=== PATIENT | female | born 1990 ===

== ENCOUNTER 2017-03-24 13:51 | Observation (INO) | payer BC ==
--- NOTE | 2017-03-24 14:47 | US ---
EXAMINATION: Biophysical profile HISTORY: Gestational diabetes COMPARISON: 03/17/2017 TECHNIQUE: Grayscale and M-mode imaging obtained. FINDINGS: Single live intrauterine is noted in the cephalic position. Amniotic fluid index is normal at 13.6 cm. Positive breathing, movement, and tone. IMPRESSION: Biophysical profile 09/14.
[2017-03-24 15:38] LABS: CHLORIDE,CL 104 mmol/L (98-110); SODIUM,NA 137 mmol/L (136-146)
== END 2017-03-24 18:00 | disposition home or self-care (01) ==
LOC: MW.OBCHECK 13:51 → MW.US 13:51 → MW.OB 15:46
PROVIDERS: ADMIT Obstetrics & Gynecology; ATTEND Advanced Practice Midwife
DX: O24.410 Gestational diabetes mellitus in pregnancy, diet controlled (principal); O16.3 Unspecified maternal hypertension, third trimester; Z3A.34 34 weeks gestation of pregnancy
CPT/HCPCS: 36415; 59025; 76819; 80053; 82570; 84156; 84550; 85025; G0378

== ENCOUNTER 2017-03-27 00:34 | Inpatient (IN) | payer BC ==
[2017-03-27] MEDS ORDERED: Water For Irrigation,Sterile 1,000 ML Container IRR PRN (00:55)
[2017-03-27] MEDS ORDERED: Methylergonovine 0.2 MG/1 ML Amp IM PRN (00:55)
[2017-03-27] MEDS ORDERED: Carboprost Tromethamine 250 MCG/1 ML Amp IM PRN (00:55)
[2017-03-27] MEDS ORDERED: Tranexamic Acid 1,000 MG in Sodium Chloride 0.9% 100 ML IV PRN (00:55)
[2017-03-27] MEDS ORDERED: Misoprostol 200 MCG Tab PO PRN (00:55)
[2017-03-27] MEDS ORDERED: Terbutaline 1 MG/ML SDV SUBCUT PRN (00:55)
[2017-03-27] MEDS ORDERED: Sodium Chloride 0.9% 10 ML Syringe FLUSH PRN (00:55)
[2017-03-27] MEDS ORDERED: Lidocaine 1% 50 ML MDV INJECT PRN (00:55)
[2017-03-27] MEDS ORDERED: Sodium Chloride 0.9% 2.5 ML Syringe FLUSH PRN (00:55)
[2017-03-27] MEDS ORDERED: Nalbuphine 10 MG/1 ML Vial IVPUSH PRN ×2 (00:55→21:14)
[2017-03-27] MEDS ORDERED: Oxytocin/0.9 % Sodium Chloride 30 UNIT/500 ML BAG IV SCH ×2 (01:00)
[2017-03-27] MEDS ORDERED: Misoprostol 25 MCG (1/4 of 100 MCG) Tab VAG SCH (01:30)
[2017-03-27] MEDS ORDERED: Misoprostol 25 MCG (1/4 of 100 MCG) Tab PO SCH (01:30)
[2017-03-27] MEDS ORDERED: Misoprostol 25 MCG (1/4 of 100 MCG) Tab VAG PRN (05:30)
[2017-03-27] MEDS ORDERED: Misoprostol 25 MCG (1/4 of 100 MCG) Tab PO PRN (05:30)
--- NOTE | 2017-03-27 09:00 | PCM.LDHP ---
L&D History of Present Illness - General Date of Service: 03/27/17 Admit Problem/Dx: Patient Status Order with Admit Dx/Problem 03/27/17 00:55 Patient Status [ADT] Routine Admission Diagnosis/Problem Admission Diagnosis/Problem 03/27/17 08:55 27yo EDC 04/04/2017 38 6/7wks IOL for GDMA1, and elevated BP. B+, RI, GBS neg. 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: Endocrine/Metabolic History: Reports: Diabetes, Gestational - Past Surgical History Cardiovascular Surgical History: Reports: None Endocrine Surgical History: Reports: None Social & Family History - Family History OBGYN: Reports: - Tobacco Use Smoking Status *Q: Never Smoker - Recreational Drug Use Recreational Drug Use: No H&P Review of Systems - Review of Systems: Review Of Systems: See Below General: Reports: No Symptoms HEENT: Reports: No Symptoms Pulmonary: Reports: No Symptoms Cardiovascular: Reports: No Symptoms Gastrointestinal: Reports: No Symptoms Genitourinary: Reports: No Symptoms Musculoskeletal: Reports: No Symptoms Skin: Reports: No Symptoms Psychiatric: Reports: No Symptoms Neurological: Reports: No Symptoms Hematologic/Lymphatic: Reports: No Symptoms Immunologic: Reports: No Symptoms L&D Exam - Exam Exam: See Below - Vital Signs Weight: 89.811 kg - OB Specific Fundal Height In cm: 39 Movement: Active Heart Tones: Present Heart Tones per Min: 130 Heart Rate (FHR) Variability: Moderate (6-25 bmp) Presentation: Vertex Estimated Weight: 3700 - Tolliver Score Tolliver Score Cervix Position: Posterior Tolliver Score Consistency: Firm Tolliver Score Effacement: 31-50% Tolliver Score Dilation: Closed Tolliver Score Infant's Station: -3 Tolliver Score Total: 1 - Exam General: Alert, Oriented, Cooperative HEENT: Hearing Intact Lungs: Clear to Auscultation, Normal Respiratory Effort Cardiovascular: Regular Rate, Regular Rhythm, Normal S1, Normal S2 GI/Abdominal Exam: Soft, Non-Tender Rectal Exam: Deferred Genitourinary: Normal external exam, Normal bimanual exam Extremities: Normal Range of Motion, Non-Tender, No Pedal Edema, Normal Capillary Refill Skin: Warm, Dry, Intact Neurological: Reflexes Equal Bilateral Psychiatric: Alert, Normal Affect, Normal Mood - Patient Data Lab Results Last 24 hrs: Laboratory Results - last 24 hr 03/27/17 03/27/17 Range/Units 01:12 01:12 WBC 9.96 (4.0-11.0) K/uL RBC 3.92 L (4.30-5.90) M/uL Hgb 12.1 (12.0-16.0) g/dL Hct 34.9 L (36.0-46.0) % MCV 89.0 (80.0-98.0) fL MCH 30.9 (27.0-32.0) pg MCHC 34.7 (31.0-37.0) g/dL RDW Std Deviation 46.5 (28.0-62.0) fl RDW Coeff of Amanda 15 (11.0-15.0) % Plt Count 230 (150-400) K/uL MPV 11.20 (7.40-12.00) fL Nucleated RBC % 0.0 /100WBC Nucleated RBCs # 0 K/uL Blood Type B POSITIVE Antibody Screen NEGATIVE Result Diagrams: 03/27/17 01:12 - Problem List (1) Supervision of normal IUP (intrauterine ) in primigravida SNOMED Code(s): 18180239, 958991220, 047517087 ICD Code: Z34.00 - ENCNTR FOR SUPRVSN OF NORMAL FIRST , UNSP TRIMESTER Status: Acute Priority: High Current Visit: Yes Qualifiers: Trimester: third trimester Qualified Code(s): Z34.03 - Encounter for supervision of normal first , third trimester (2) GDM (gestational diabetes mellitus), class A1 SNOMED Code(s): 77548500 ICD Code: O24.410 - GESTATIONAL DIABETES MELLITUS IN , DIET CONTROLLED Status: Acute Priority: High Current Visit: Yes (3) Elevated blood pressure affecting in third trimester, antepartum SNOMED Code(s): 73833840, 910712979 ICD Code: O16.3 - UNSPECIFIED MATERNAL HYPERTENSION, THIRD TRIMESTER Status : Acute Priority: High Current Visit: Yes Problem List Initiated/Reviewed/Updated: Yes Orders Last 24hrs: Active Orders 24 hr Category Date Time Status Patient Status [ADT] Routine ADT 03/27/17 00:55 Active Bedrest Bathroom Privileges [RC] ASDIRECTED Care 03/27/17 00:56 Active Communication Order [RC] ASDIRECTED Care 03/27/17 00:56 Active Communication Order [RC] ASDIRECTED Care 03/27/17 00:56 Active Communication Order [RC] ASDIRECTED Care 03/27/17 00:56 Active Heart Tones [RC] CONTINUOUS Care 03/27/17 00:55 Active Non Stress Test [RC] PER UNIT ROUTINE Care 03/27/17 00:55 Active May Shower [RC] ASDIRECTED Care 03/27/17 00:55 Active Notify Provider [RC] PRN Care 03/27/17 00:55 Active Notify Provider [RC] PRN Care 03/27/17 00:56 Active Notify Provider [RC] PRN Care 03/27/17 00:56 Active Notify Provider [RC] STAT Care 03/27/17 00:56 Active Oxygen Therapy [RC] ASDIRECTED Care 03/27/17 00:56 Active Up ad Mercedes [RC] ASDIRECTED Care 03/27/17 00:55 Active Vaginal Exam [RC] PRN Care 03/27/17 00:55 Active Vaginal Exam [RC] PRN Care 03/27/17 00:56 Active Vital Signs [RC] PER UNIT ROUTINE Care 03/27/17 00:56 Active Vital Signs [RC] PER UNIT ROUTINE Care 03/27/17 00:56 Active Regular Diet [DIET] Diet 03/27/17 Breakfast Active Carboprost Tromethamine [Hemabate DS] Med 03/27/17 00:55 Active 250 mcg IM ASDIRECTED PRN Lactated Ringers [Ringers, Lactated] 1,000 ml Med 03/27/17 01:00 Active IV ASDIRECTED Lidocaine 1% [Xylocaine 1%] Med 03/27/17 00:55 Active 50 ml INJECT .ONCE PRN Methylergonovine [Methergine] Med 03/27/17 00:55 Active 0.2 mg IM ASDIRECTED PRN Misoprostol [Cytotec] Med 03/27/17 00:55 Active 200 mcg PO .ONCE PRN Misoprostol [Cytotec] Med 03/27/17 01:30 Active 25 mcg PO .ONCE Misoprostol [Cytotec] Med 03/27/17 05:30 Active 25 mcg PO Q4H PRN Misoprostol [Cytotec] Med 03/27/17 01:30 Active 25 mcg VAG .ONCE Misoprostol [Cytotec] Med 03/27/17 05:30 Active 25 mcg VAG Q4H PRN Nalbuphine [Nubain] Med 03/27/17 00:55 Active 10 mg IVPUSH Q1H PRN Oxytocin/0.9 % Sodium Chloride [Oxytocin 30 Unit/500 ML Med 03/27/17 01:00 Active -NS] 30 unit in 500 ml IV TITRATE Oxytocin/0.9 % Sodium Chloride [Oxytocin 30 Unit/500 ML Med 03/27/17 01:00 Active -NS] 30 unit in 500 ml IV TITRATE Sodium Chloride 0.9% [Saline Flush] Med 03/27/17 00:55 Active 10 ml FLUSH ASDIRECTED PRN Sodium Chloride 0.9% [Saline Flush] Med 03/27/17 00:55 Active 2.5 ml FLUSH ASDIRECTED PRN Terbutaline [Brethine] Med 03/27/17 00:55 Active 0.25 mg SUBCUT ASDIRECTED PRN Tranexamic Acid [Cyklokapron] 1,000 mg Med 03/27/17 00:55 Active Sodium Chloride 0.9% [Normal Saline] 100 ml IV ONETIME Water For Irrigation,Sterile [Sterile Water for Med 03/27/17 00:55 Active Irrigation] 1,000 ml IRR ASDIRECTED PRN Scalp Electrode [WOMSER] Per Unit Routine Oth 03/27/17 00:55 Ordered Medication Administration Instruction [OM.PC] Q3H Oth 03/27/17 01:00 Ordered Peripheral IV Insertion Adult [OM.PC] Routine Oth 03/27/17 00:55 Ordered Resuscitation Status Routine Resus Stat 03/27/17 00:55 Ordered Medication Orders Carboprost Tromethamine (Hemabate Ds) 250 mcg IM ASDIRECTED PRN PRN Reason: Post Hemorrhage Lactated Ringer's (Ringers, Lactated) 1,000 mls @ 150 mls/hr IV ASDIRECTED LAST Oxytocin/Sodium Chloride (Oxytocin 30 Unit/500 Ml-Ns) 30 unit in 500 mls @ 999 mls/hr IV TITRATE LAST Oxytocin/Sodium Chloride (Oxytocin 30 Unit/500 Ml-Ns) 30 unit in 500 mls @ 2 mls/hr IV TITRATE LAST; 2 MUNITS/MIN PRN Reason: Protocol Tranexamic Acid 1,000 mg/ (Sodium Chloride) 110 mls @ 600 mls/hr IV ONETIME PRN PRN Reason: Bleeding Lidocaine HCl (Xylocaine 1%) 50 ml INJECT .ONCE PRN PRN Reason: Laceration repair Methylergonovine Maleate (Methergine) 0.2 mg IM ASDIRECTED PRN PRN Reason: Post Hemorrhage Misoprostol (Cytotec) 200 mcg PO .ONCE PRN PRN Reason: Post Hemorrhage Misoprostol (Cytotec) 25 mcg VAG .ONCE LAST Last Admin: 03/27/17 01:46 Dose: 25 mcg Misoprostol (Cytotec) 25 mcg VAG Q4H PRN PRN Reason: Cervical Ripening Last Admin: 03/27/17 05:43 Dose: 25 mcg Misoprostol (Cytotec) 25 mcg PO .ONCE LAST Last Admin: 03/27/17 01:50 Dose: 25 mcg Misoprostol (Cytotec) 25 mcg PO Q4H PRN PRN Reason: Cervical Ripening Last Admin: 03/27/17 05:43 Dose: 25 mcg Nalbuphine HCl (Nubain) 10 mg IVPUSH Q1H PRN PRN Reason: Pain (severe 7-10) Sodium Chloride (Saline Flush) 10 ml FLUSH ASDIRECTED PRN PRN Reason: Keep Vein Open Sodium Chloride (Saline Flush) 2.5 ml FLUSH ASDIRECTED PRN PRN Reason: Keep Vein Open Sterile Water (Sterile Water For Irrigation) 1,000 ml IRR ASDIRECTED PRN PRN Reason: delivery Terbutaline Sulfate (Brethine) 0.25 mg SUBCUT ASDIRECTED PRN PRN Reason: Tacysystole Assessment/Plan Comment:: IOL A: 27yo EDC 04/04/2017 38 6/7wks IOL for GDMA1, and elevated BP. B+, RI, GBS neg. P: Admit, pain meds prn, anticipate , Dr Santiago updated
[2017-03-27] MEDS: Lactated Ringers 1,000 ML IV SCH ×2 (10:49→19:49)
[2017-03-27] MEDS: NIFEdipine 30 MG Tab.ER PO SCH (18:00)
--- NOTE | 2017-03-27 20:23 | PCM.PREANE ---
Preanesthetic Assessment - Anesthesia/Transfusion/Family Hx Anesthesia History: No Prior Anesthesia Transfusion History: No Prior Transfusion(s) - Review of Systems General: No Symptoms Pulmonary: No Symptoms Cardiovascular: No Symptoms Gastrointestinal: No Symptoms Neurological: No Symptoms Other: Reports: None - Physical Assessment Blood Pressure: 141/84 Vital Signs: Last Vital Signs Temp Pulse Resp BP 141/84 H 03/27/17 18:00 Pulse Ox Height: 5 ft 9 in Weight: 89.811 kg ASA Class: 2E Mental Status: Alert & Oriented x3 Airway Class: Mallampati = 2 Dentition: Reports: Normal Dentition Thyro-Mental Finger Breadths: 3 Mouth Opening Finger Breadths: 3 ROM/Head Extension: Full Lungs: Clear to Auscultation, Normal Respiratory Effort Cardiovascular: Regular Rate, Regular Rhythm - Lab Values: Laboratory Last Values WBC 9.96 K/uL (4.0-11.0) 03/27/17 01:12 RBC 3.92 M/uL (4.30-5.90) L 03/27/17 01:12 Hgb 12.1 g/dL (12.0-16.0) 03/27/17 01:12 Hct 34.9 % (36.0-46.0) L 03/27/17 01:12 MCV 89.0 fL (80.0-98.0) 03/27/17 01:12 MCH 30.9 pg (27.0-32.0) 03/27/17 01:12 MCHC 34.7 g/dL (31.0-37.0) 03/27/17 01:12 RDW Std Deviation 46.5 fl (28.0-62.0) 03/27/17 01:12 RDW Coeff of Amanda 15 % (11.0-15.0) 03/27/17 01:12 Plt Count 230 K/uL (150-400) 03/27/17 01:12 MPV 11.20 fL (7.40-12.00) 03/27/17 01:12 Nucleated RBC % 0.0 /100WBC 03/27/17 01:12 Nucleated RBCs # 0 K/uL 03/27/17 01:12 Blood Type B POSITIVE 03/27/17 01:12 Antibody Screen NEGATIVE 03/27/17 01:12 - Allergies Allergies/Adverse Reactions: Allergies Allergy/AdvReac Type Severity Reaction Status Date / Time No Known Allergies Allergy Verified 03/27/17 00:54 - Acknowledgements Anesthesia Type Planned: General Anesthesia, Spinal (Duramorph) Pt an Appropriate Candidate for the Planned Anesthesia: Yes Alternatives and Risks of Anesthesia Discussed w Pt/Guardian: Yes Pt/Guardian Understands and Agrees with Anesthesia Plan: Yes PreAnesthesia Questionnaire HEENT History: Reports: None Cardiovascular History: Reports: Hypertension, Other (See Below) (PIH) Respiratory History: Reports: None Gastrointestinal History: Reports: GERD Genitourinary History: Reports: None 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: : 1 Para: 0 LMP (Approximate): Musculoskeletal History: Reports: None Neurological History: Reports: None Psychiatric History: Reports: None Endocrine/Metabolic History: Reports: Diabetes, Gestational (Diet controlled) Hematologic History: Reports: None Immunologic History: Reports: None Oncologic (Cancer) History: Reports: None Dermatologic History: Reports: None - Infectious Disease History Infectious Disease History: Reports: None - Past Surgical History Cardiovascular Surgical History: Reports: None Endocrine Surgical History: Reports: None - SUBSTANCE USE Smoking Status *Q: Never Smoker Recreational Drug Use History: No - CURRENT (IN HOUSE) MEDS Current Meds: Current Medications Carboprost Tromethamine (Hemabate Ds) 250 mcg IM ASDIRECTED PRN PRN Reason: Post Hemorrhage Lactated Ringer's (Ringers, Lactated) 1,000 mls @ 150 mls/hr IV ASDIRECTED LAST Last Admin: 03/27/17 19:49 Dose: 150 mls/hr Oxytocin/Sodium Chloride (Oxytocin 30 Unit/500 Ml-Ns) 30 unit in 500 mls @ 999 mls/hr IV TITRATE LAST Oxytocin/Sodium Chloride (Oxytocin 30 Unit/500 Ml-Ns) 30 unit in 500 mls @ 2 mls/hr IV TITRATE LAST; 2 MUNITS/MIN PRN Reason: Protocol Last Titration: 03/27/17 17:47 Dose: 0 munits/min, 0 mls/hr Tranexamic Acid 1,000 mg/ (Sodium Chloride) 110 mls @ 600 mls/hr IV ONETIME PRN PRN Reason: Bleeding Lidocaine HCl (Xylocaine 1%) 50 ml INJECT .ONCE PRN PRN Reason: Laceration repair Methylergonovine Maleate (Methergine) 0.2 mg IM ASDIRECTED PRN PRN Reason: Post Hemorrhage Misoprostol (Cytotec) 200 mcg PO .ONCE PRN PRN Reason: Post Hemorrhage Misoprostol (Cytotec) 25 mcg VAG .ONCE [facility] Last Admin: 03/27/17 01:46 Dose: 25 mcg Misoprostol (Cytotec) 25 mcg VAG Q4H PRN PRN Reason: Cervical Ripening Last Admin: 03/27/17 05:43 Dose: 25 mcg Misoprostol (Cytotec) 25 mcg PO .ONCE [facility] Last Admin: 03/27/17 01:50 Dose: 25 mcg Misoprostol (Cytotec) 25 mcg PO Q4H PRN PRN Reason: Cervical Ripening Last Admin: 03/27/17 05:43 Dose: 25 mcg Nalbuphine HCl (Nubain) 10 mg IVPUSH Q1H PRN PRN Reason: Pain (severe 7-10) Nifedipine (Procardia Xl) 30 mg PO DAILY [facility] Last Admin: 03/27/17 18:00 Dose: 30 mg Sodium Chloride (Saline Flush) 10 ml FLUSH ASDIRECTED PRN PRN Reason: Keep Vein Open Sodium Chloride (Saline Flush) 2.5 ml FLUSH ASDIRECTED PRN PRN Reason: Keep Vein Open Sterile Water (Sterile Water For Irrigation) 1,000 ml IRR ASDIRECTED PRN PRN Reason: delivery Terbutaline Sulfate (Brethine) 0.25 mg SUBCUT ASDIRECTED PRN PRN Reason: Tacysystole
[2017-03-27] MEDS ORDERED: ceFAZolin 1 GM Vial ONE (20:34)
[2017-03-27] MEDS ORDERED: Morphine PF 1 MG/ML Amp ONE (20:34)
[2017-03-27] MEDS ORDERED: Ondansetron 4 MG/2 ML SDV ONE (20:34)
[2017-03-27] MEDS ORDERED: Sodium Chloride 0.9% 20 ML ONE ×2 (20:34→21:20)
[2017-03-27] MEDS ORDERED: ePHEDrine 50 MG/ML SDV ONE (20:34)
[2017-03-27] MEDS ORDERED: Oxytocin 10 Units/1 ML SDV ONE (20:53)
[2017-03-27] MEDS ORDERED: Midazolam 1 MG/ML 2 ML SDV ONE (21:01)
[2017-03-27] MEDS ORDERED: Labetalol 100 MG/20 ML MDV ONE (21:12)
[2017-03-27] MEDS ORDERED: diphenhydrAMINE 50 MG/ML SDV IVPUSH PRN ×2 (21:14→21:30)
[2017-03-27] MEDS ORDERED: fentaNYL 100 MCG/2 ML SDV IVPUSH PRN (21:14)
[2017-03-27] MEDS ORDERED: Naloxone 0.4 MG/ML Syringe IVPUSH PRN (21:14)
[2017-03-27] MEDS ORDERED: hydrALAZINE 20 MG/ML SDV ONE (21:20)
[2017-03-27] MEDS ORDERED: Octyl 2-Cyanoacrylate 1 Tube ONE (21:24)
[2017-03-27] MEDS ORDERED: Lanolin 100% Cream 7 GM Tube TOP PRN (21:30)
[2017-03-27] MEDS ORDERED: Ibuprofen 800 MG Tab PO PRN (21:30)
[2017-03-27] MEDS ORDERED: Bisacodyl 10 MG Supp RECTAL PRN (21:30)
[2017-03-27] MEDS ORDERED: Acetaminophen/oxyCODONE 325-5 MG Tab PO PRN ×2 (21:30)
[2017-03-27] MEDS ORDERED: Ondansetron 4 MG/2 ML SDV IV PRN (21:30)
[2017-03-27] MEDS ORDERED: Lactated Ringers 1,000 ML IV SCH (21:30)
--- NOTE | 2017-03-27 21:30 | PCM.OPNOTE ---
- General Post-Op/Procedure Note Date of Surgery/Procedure: 03/27/17 Operative Procedure(s): Primary C/Section Pre Op Diagnosis: IUP 39+ wks Faild induction. Post-Op Diagnosis: Same Anesthesia Technique: Spinal Primary Surgeon: Arden Santiago Labeler: Eboni Mcarthur EBL in mLs: 700 Complications: None Condition: Good
--- NOTE | 2017-03-27 22:04 | PCM.POSTAN ---
POST ANESTHESIA ASSESSMENT - MENTAL STATUS Mental Status: Alert, Oriented - RESPIRATORY Respiratory Status: Respiratory Rate WNL, Airway Patent, O2 Saturation Stable - CARDIOVASCULAR CV Status: Pulse Rate WNL, Blood Pressure Stable - GASTROINTESTINAL GI Status: No Symptoms - POST OP HYDRATION Hydration Status: Adequate & Stable
--- NOTE | 2017-03-27 22:33 | OR ---
SURGEON: Arden Santiago MD DATE OF PROCEDURE: PREOPERATIVE DIAGNOSES: Intrauterine at 39 weeks plus, gestational diabetes diet controlled, PIH, admitted for induction and it has failed. POSTOPERATIVE DIAGNOSES: Intrauterine at 39 weeks plus, gestational diabetes diet controlled, PIH, admitted for induction and it has failed. OPERATION PERFORMED: Primary low transverse section. CARBON ROD INSERTER: Eboni Mcarthur CNM ANESTHESIA: Spinal, Donell Richmond. ESTIMATED BLOOD LOSS: 700 mL. COMPLICATIONS: None. FINDING: Female fetus. score reported to be 8 and 9. Normal uterus, tubes, and ovaries. INDICATION FOR SURGERY: This patient is 27, primigravida. She is 39+. She is gestational diabetic. She had PIH. She is followed primarily by our nurse certified midwife. She is admitted for elective induction. She had Cytotec and Pitocin. The patient did not progress adequately, and at the later end of the process of the induction, the patient started having some variable deceleration with late component. She still dilated 1 cm. She is remote from delivery, and decision was made to do primary low transverse section. PROCEDURE IN DETAIL: The patient was brought to the OR, properly identified, and after adequate level of spinal anesthesia with a Hardin catheter in the bladder, the patient was prepped and draped in sterile fashion as usual, and the time-out was taken and then after that, low transverse Pfannenstiel skin incision was done. Emanuel fascia and rectus fascia were opened in direction of the incision. The 2 recti muscles . Peritoneal cavity is entered. The bladder flap was raised in the usual manner pushing the bladder away from the lower uterine segment. Low transverse uterine incision was done and extended manually with the hand. Fetus was delivered and was in vertex position, handed to the die press operator, Dr. Moctezuma, who was present at the time of the delivery. The fetus was cried immediately. score reported to be 8 and 9, and the weight is not available. The placenta delivered spontaneous complete and intact and then repair of the lower uterine segment was done with 2-0 Vicryl continuous interlocking, in 2 layers then reperitonealization done with 3-0 Vicryl continuous then the peritoneal cavity evacuated completely from all blood and blood clot and closed with 3-0 Vicryl continuous. The rectus fascia was closed with #1 PDS continuous and the Emanuel's fascia with 3-0 Vicryl continuous, and the skin with 3-0 Vicryl and on a Phu needle in a subcuticular fashion and Dermabond. Instrument and sponge count were correct. The patient tolerated the procedure well, went to recovery room in stable general condition. ESLAM WELLS /[id number]
[2017-03-27] MEDS: Ketorolac 30 MG/ML SDV IVPUSH SCH (22:47)
[2017-03-28] MEDS: Ketorolac 30 MG/ML SDV IVPUSH SCH ×4 (04:16→21:27)
--- NOTE | 2017-03-28 09:17 | PCM48HPAN ---
Post Anesthesia Note - EVALUATION WITHIN 48HRS OF ANESTHETIC Vital Signs in Normal Range: Yes Patient Participated in Evaluation: Yes Respiratory Function Stable: Yes Airway Patent: Yes Cardiovascular Function Stable: Yes Hydration Status Stable: Yes Pain Control Satisfactory: Yes Nausea and Vomiting Control Satisfactory: Yes Mental Status Recovered: Yes Resp Rate: 15 Blood Pressure: 141/84
[2017-03-28] MEDS: Docusate Sodium 100 MG Cap PO SCH ×2 (09:31→21:26)
[2017-03-28] MEDS: NIFEdipine 30 MG Tab.ER PO SCH (09:31)
--- NOTE | 2017-03-28 13:54 | PCM.SURGPN ---
- General Info Date of Service: 03/28/17 POD#: 1 Functional Status: Reports: Pain Controlled - Review of Systems General: Reports: No Symptoms HEENT: Reports: No Symptoms Pulmonary: Reports: No Symptoms Cardiovascular: Reports: No Symptoms Gastrointestinal: Reports: No Symptoms Genitourinary: Reports: No Symptoms Musculoskeletal: Reports: No Symptoms Skin: Reports: No Symptoms Neurological: Reports: No Symptoms Psychiatric: Reports: No Symptoms - Patient Data Vitals - Most Recent: Last Vital Signs Temp 36.1 C 03/28/17 04:00 Pulse 88 03/28/17 12:00 Resp 13 03/28/17 12:00 BP 160/103 H 03/28/17 09:31 Pulse Ox 99 03/28/17 12:00 Weight - Most Recent: 89.811 kg I&O - Last 24 Hours: Intake & Output 03/27/17 03/28/17 03/28/17 22:59 06:59 14:59 Intake Total 1900 Output Total 400 Balance 1500 Lab Results Last 24 Hrs: Laboratory Results - last 24 hr 03/28/17 03/28/17 Range/Units 05:15 07:42 Hgb 10.9 L (12.0-16.0) g/dL Hct 32.3 L (36.0-46.0) % POC Glucose 64 (60-110) mg/dL Med Orders - Current: Current Medications Bisacodyl (Dulcolax) 10 mg RECTAL .ONCE PRN PRN Reason: Constipation Carboprost Tromethamine (Hemabate Ds) 250 mcg IM ASDIRECTED PRN PRN Reason: Post Hemorrhage Diphenhydramine HCl (Benadryl) 25 mg IVPUSH Q4H PRN PRN Reason: Itching Stop: 03/28/17 21:15 Diphenhydramine HCl (Benadryl) 25 mg IVPUSH Q6H PRN PRN Reason: Itching or Nausea Last Admin: 03/27/17 23:47 Dose: 25 mg Docusate Sodium (Colace) 100 mg PO BID LAST Last Admin: 03/28/17 09:31 Dose: 100 mg Emollient Ointment (Lansinoh Hpa) 0 gm TOP ASDIRECTED PRN PRN Reason: Sore Nipples Fentanyl (Sublimaze) 50 mcg IVPUSH Q45M PRN PRN Reason: Pain (severe 7-10) Stop: 03/28/17 21:15 Lactated Ringer's (Ringers, Lactated) 1,000 mls @ 150 mls/hr IV ASDIRECTED [facility] Last Admin: 03/27/17 19:49 Dose: 150 mls/hr Oxytocin/Sodium Chloride (Oxytocin 30 Unit/500 Ml-Ns) 30 unit in 500 mls @ 999 mls/hr IV TITRATE LAST Oxytocin/Sodium Chloride (Oxytocin 30 Unit/500 Ml-Ns) 30 unit in 500 mls @ 2 mls/hr IV TITRATE LAST; 2 MUNITS/MIN PRN Reason: Protocol Last Titration: 03/27/17 17:47 Dose: 0 munits/min, 0 mls/hr Tranexamic Acid 1,000 mg/ (Sodium Chloride) 110 mls @ 600 mls/hr IV ONETIME PRN PRN Reason: Bleeding Lactated Ringer's (Ringers, Lactated) 1,000 mls @ 125 mls/hr IV ASDIRECTED [facility] Last Admin: 03/27/17 23:27 Dose: 125 mls/hr Ibuprofen (Motrin) 800 mg PO Q8H PRN PRN Reason: mild pain or fever Ketorolac Tromethamine (Toradol) 30 mg IVPUSH Q6H [facility] Stop: 03/28/17 22:01 Last Admin: 03/28/17 09:32 Dose: 30 mg Lidocaine HCl (Xylocaine 1%) 50 ml INJECT .ONCE PRN PRN Reason: Laceration repair Methylergonovine Maleate (Methergine) 0.2 mg IM ASDIRECTED PRN PRN Reason: Post Hemorrhage Misoprostol (Cytotec) 200 mcg PO .ONCE PRN PRN Reason: Post Hemorrhage Misoprostol (Cytotec) 25 mcg VAG .ONCE LAST Last Admin: 03/27/17 01:46 Dose: 25 mcg Misoprostol (Cytotec) 25 mcg VAG Q4H PRN PRN Reason: Cervical Ripening Last Admin: 03/27/17 05:43 Dose: 25 mcg Misoprostol (Cytotec) 25 mcg PO .ONCE LAST Last Admin: 03/27/17 01:50 Dose: 25 mcg Misoprostol (Cytotec) 25 mcg PO Q4H PRN PRN Reason: Cervical Ripening Last Admin: 03/27/17 05:43 Dose: 25 mcg Nalbuphine HCl (Nubain) 10 mg IVPUSH Q1H PRN PRN Reason: Pain (severe 7-10) Nalbuphine HCl (Nubain) 5 mg IVPUSH Q3H PRN PRN Reason: Pruritis Stop: 03/28/17 21:15 Naloxone HCl (Narcan) 0.1 mg IVPUSH ONETIME PRN PRN Reason: Respiratory Depression Stop: 03/28/17 21:15 Nifedipine (Procardia Xl) 30 mg PO DAILY LAST Last Admin: 03/28/17 09:31 Dose: 30 mg Ondansetron HCl (Zofran) 4 mg IV Q4H PRN PRN Reason: Nausea/Vomiting Oxycodone/Acetaminophen (Percocet 325-5 Mg) 1 tab PO Q4H PRN PRN Reason: Pain (moderate 4-6) Oxycodone/Acetaminophen (Percocet 325-5 Mg) 2 tab PO Q4H PRN PRN Reason: Pain (moderate 4-6) Sodium Chloride (Saline Flush) 10 ml FLUSH ASDIRECTED PRN PRN Reason: Keep Vein Open Sodium Chloride (Saline Flush) 2.5 ml FLUSH ASDIRECTED PRN PRN Reason: Keep Vein Open Sterile Water (Sterile Water For Irrigation) 1,000 ml IRR ASDIRECTED PRN PRN Reason: delivery Terbutaline Sulfate (Brethine) 0.25 mg SUBCUT ASDIRECTED PRN PRN Reason: Tacysystole Discontinued Medications Cefazolin Sodium (Ancef) Confirm Administered Dose 2 gm .ROUTE .STK-MED ONE Stop: 03/27/17 20:35 Ephedrine Sulfate (Ephedrine Sulfate) Confirm Administered Dose 50 mg .ROUTE .STK-MED ONE Stop: 03/27/17 20:35 Hydralazine HCl (Apresoline) Confirm Administered Dose 20 mg .ROUTE .STK-MED ONE Stop: 03/27/17 21:21 Sodium Chloride (Normal Saline) Confirm Administered Dose 20 mls @ as directed .ROUTE .STK-MED ONE Stop: 03/27/17 20:35 Sodium Chloride (Normal Saline) Confirm Administered Dose 20 mls @ as directed .ROUTE .STK-MED ONE Stop: 03/27/17 21:21 Ibuprofen (Motrin) 800 mg PO Q8H PRN PRN Reason: mild pain or fever Labetalol HCl (Normodyne) Confirm Administered Dose 100 mg .ROUTE .STK-MED ONE Stop: 03/27/17 21:13 Midazolam HCl (Versed 1 Mg/Ml) Confirm Administered Dose 2 mg .ROUTE .STK-MED ONE Stop: 03/27/17 21:02 Morphine Sulfate (Duramorph Pf) Confirm Administered Dose 1 mg .ROUTE .STK-MED ONE Stop: 03/27/17 20:35 Octyl Cyanoacrylate (Dermabond Advance) Confirm Administered Dose 1 applic .ROUTE .STK-MED ONE Stop: 03/27/17 21:25 Ondansetron HCl (Zofran) Confirm Administered Dose 4 mg .ROUTE .STK-MED ONE Stop: 03/27/17 20:35 Oxytocin (Pitocin) Confirm Administered Dose 20 unit .ROUTE .STK-MED ONE Stop: 03/27/17 20:54 - Problem List Review Problem List Initiated/Reviewed/Updated: Yes - My Orders Last 24 Hours: Active Orders 24 hr Category Date Time Status Patient Status [ADT] Routine ADT 03/27/17 21:31 Active Ambulate [RC] PER UNIT ROUTINE Care 03/27/17 21:31 Active Antiembolic Devices [RC] PER UNIT ROUTINE Care 03/27/17 21:31 Active Bradycardia-Neuroaxis [employer] [RC] ROUTINE Care 03/27/17 21:14 Active Communication Order [RC] PER UNIT ROUTINE Care 03/27/17 21:31 Active Communication Order [RC] PER UNIT ROUTINE Care 03/27/17 21:31 Active Communication Order [RC] Per Unit Routine Care 03/27/17 21:31 Active Hypertension-Neuroaxis [employer] [RC] ROUTINE Care 03/27/17 21:14 Active Hypotension-Neuroaxis [employer] [RC] ROUTINE Care 03/27/17 21:14 Active May Shower [RC] ASDIRECTED Care 03/27/17 21:31 Active Oxygen Therapy [RC] PER UNIT ROUTINE Care 03/27/17 21:15 Active RT Incentive Spirometry [RC] Q2HWA Care 03/27/17 21:31 Active Vital Signs [RC] PER UNIT ROUTINE Care 03/27/17 21:31 Active Vital Signs [RC] Q1H Care 03/27/17 21:15 Active Acetaminophen/oxyCODONE [Percocet 325-5 MG] Med 03/27/17 21:30 Active 1 tab PO Q4H PRN Acetaminophen/oxyCODONE [Percocet 325-5 MG] Med 03/27/17 21:30 Active 2 tab PO Q4H PRN Bisacodyl [Dulcolax] Med 03/27/17 21:30 Active 10 mg RECTAL .ONCE PRN Docusate Sodium [Colace] Med 03/28/17 09:00 Active 100 mg PO BID Ibuprofen [Motrin] Med 03/29/17 04:00 Active 800 mg PO Q8H PRN Ketorolac [Toradol] Med 03/27/17 22:00 Active 30 mg IVPUSH Q6H Lactated Ringers [Ringers, Lactated] 1,000 ml Med 03/27/17 21:30 Active IV ASDIRECTED Lanolin [Lansinoh HPA] Med 03/27/17 21:30 Active See Dose Instructions TOP ASDIRECTED PRN NIFEdipine [Procardia XL] Med 03/27/17 18:00 Active 30 mg PO DAILY Nalbuphine [Nubain] Med 03/27/17 21:14 Active 5 mg IVPUSH Q3H PRN Naloxone [Narcan] Med 03/27/17 21:14 Active 0.1 mg IVPUSH ONETIME PRN Ondansetron [Zofran] Med 03/27/17 21:30 Active 4 mg IV Q4H PRN diphenhydrAMINE [Benadryl] Med 03/27/17 21:14 Active 25 mg IVPUSH Q4H PRN diphenhydrAMINE [Benadryl] Med 03/27/17 21:30 Active 25 mg IVPUSH Q6H PRN fentaNYL [Sublimaze] Med 03/27/17 21:14 Active 50 mcg IVPUSH Q45M PRN AN Neuroaxis [employer] Precaution Reflex [OM.PC] PER Oth 03/27/17 21:15 Ordered UNIT ROUTINE AN Neuroaxis [employer] Precaution Reflex [OM.PC] PER Oth 03/28/17 21:15 Ordered UNIT ROUTINE Assess Lochia [WOMSER] Per Unit Routine Oth 03/27/17 21:31 Ordered Assess Uterine Involution [WOMSER] Per Unit Routine Oth 02/18/18 21:31 Ordered Breast Pump [WOMSER] Per Unit Routine Oth 03/27/17 21:31 Ordered Peripheral IV Discontinue [OM.PC] Routine Oth 03/27/17 21:31 Ordered Sequential Compression Device [OM.PC] Per Unit Routine Oth 03/27/17 21:31 Ordered Medication Orders Bisacodyl (Dulcolax) 10 mg RECTAL .ONCE PRN PRN Reason: Constipation Carboprost Tromethamine (Hemabate Ds) 250 mcg IM ASDIRECTED PRN PRN Reason: Post Hemorrhage Diphenhydramine HCl (Benadryl) 25 mg IVPUSH Q4H PRN PRN Reason: Itching Stop: 03/28/17 21:15 Diphenhydramine HCl (Benadryl) 25 mg IVPUSH Q6H PRN PRN Reason: Itching or Nausea Last Admin: 03/27/17 23:47 Dose: 25 mg Docusate Sodium (Colace) 100 mg PO BID LAST Last Admin: 03/28/17 09:31 Dose: 100 mg Emollient Ointment (Lansinoh Hpa) 0 gm TOP ASDIRECTED PRN PRN Reason: Sore Nipples Fentanyl (Sublimaze) 50 mcg IVPUSH Q45M PRN PRN Reason: Pain (severe 7-10) Stop: 03/28/17 21:15 Lactated Ringer's (Ringers, Lactated) 1,000 mls @ 150 mls/hr IV ASDIRECTED LAST Last Admin: 03/27/17 19:49 Dose: 150 mls/hr Infusion: 03/27/17 17:30 Dose: 150 mls/hr Admin: 03/27/17 10:49 Dose: 150 mls/hr Oxytocin/Sodium Chloride (Oxytocin 30 Unit/500 Ml-Ns) 30 unit in 500 mls @ 999 mls/hr IV TITRATE LAST Oxytocin/Sodium Chloride (Oxytocin 30 Unit/500 Ml-Ns) 30 unit in 500 mls @ 2 mls/hr IV TITRATE LATS; 2 MUNITS/MIN PRN Reason: Protocol Last Titration: 03/27/17 17:47 Dose: 0 munits/min, 0 mls/hr Titration: 03/27/17 17:44 Dose: 4 munits/min, 4 mls/hr Titration: 03/27/17 15:41 Dose: 8 munits/min, 8 mls/hr Titration: 03/27/17 13:25 Dose: 6 munits/min, 6 mls/hr Titration: 03/27/17 12:50 Dose: 4 munits/min, 4 mls/hr Titration: 03/27/17 12:03 Dose: 6 munits/min, 6 mls/hr Titration: 03/27/17 11:19 Dose: 4 munits/min, 4 mls/hr Admin: 03/27/17 10:50 Dose: 2 munits/min, 2 mls/hr Tranexamic Acid 1,000 mg/ (Sodium Chloride) 110 mls @ 600 mls/hr IV ONETIME PRN PRN Reason: Bleeding Lactated Ringer's (Ringers, Lactated) 1,000 mls @ 125 mls/hr IV ASDIRECTED [facility] Last Admin: 03/27/17 23:27 Dose: 125 mls/hr Ibuprofen (Motrin) 800 mg PO Q8H PRN PRN Reason: mild pain or fever Ketorolac Tromethamine (Toradol) 30 mg IVPUSH Q6H [facility] Stop: 03/28/17 22:01 Last Admin: 03/28/17 09:32 Dose: 30 mg Admin: 03/28/17 04:16 Dose: 30 mg Admin: 03/27/17 22:47 Dose: 30 mg Lidocaine HCl (Xylocaine 1%) 50 ml INJECT .ONCE PRN PRN Reason: Laceration repair Methylergonovine Maleate (Methergine) 0.2 mg IM ASDIRECTED PRN PRN Reason: Post Hemorrhage Misoprostol (Cytotec) 200 mcg PO .ONCE PRN PRN Reason: Post Hemorrhage Misoprostol (Cytotec) 25 mcg VAG .ONCE [facility] Last Admin: 03/27/17 01:46 Dose: 25 mcg Misoprostol (Cytotec) 25 mcg VAG Q4H PRN PRN Reason: Cervical Ripening Last Admin: 03/27/17 05:43 Dose: 25 mcg Misoprostol (Cytotec) 25 mcg PO .ONCE [facility] Last Admin: 03/27/17 01:50 Dose: 25 mcg Misoprostol (Cytotec) 25 mcg PO Q4H PRN PRN Reason: Cervical Ripening Last Admin: 03/27/17 05:43 Dose: 25 mcg Nalbuphine HCl (Nubain) 10 mg IVPUSH Q1H PRN PRN Reason: Pain (severe 7-10) Nalbuphine HCl (Nubain) 5 mg IVPUSH Q3H PRN PRN Reason: Pruritis Stop: 03/28/17 21:15 Naloxone HCl (Narcan) 0.1 mg IVPUSH ONETIME PRN PRN Reason: Respiratory Depression Stop: 03/28/17 21:15 Nifedipine (Procardia Xl) 30 mg PO DAILY LAST Last Admin: 03/28/17 09:31 Dose: 30 mg Admin: 03/27/17 18:00 Dose: 30 mg Ondansetron HCl (Zofran) 4 mg IV Q4H PRN PRN Reason: Nausea/Vomiting Oxycodone/Acetaminophen (Percocet 325-5 Mg) 1 tab PO Q4H PRN PRN Reason: Pain (moderate 4-6) Oxycodone/Acetaminophen (Percocet 325-5 Mg) 2 tab PO Q4H PRN PRN Reason: Pain (moderate 4-6) Sodium Chloride (Saline Flush) 10 ml FLUSH ASDIRECTED PRN PRN Reason: Keep Vein Open Sodium Chloride (Saline Flush) 2.5 ml FLUSH ASDIRECTED PRN PRN Reason: Keep Vein Open Sterile Water (Sterile Water For Irrigation) 1,000 ml IRR ASDIRECTED PRN PRN Reason: delivery Terbutaline Sulfate (Brethine) 0.25 mg SUBCUT ASDIRECTED PRN PRN Reason: Tacysystole - Assessment Assessment (Free Text/Narrative):: Status post section postoperative day #1 patient is doing well she is breast-feeding fully catheter is out. There is no vaginal bleeding the patient have normal lochia and she is on regular diet she is ambulating and doing well - Plan Plan (Free Text/Narrative):: Well-defined to send the patient home in a.m. if she continued to do well like the way she is not
[2017-03-29] MEDS ORDERED: Ibuprofen 800 MG Tab PO PRN (04:00)
--- NOTE | 2017-03-29 08:56 | PCM.DCSUM1 ---
Discharge Summary - Discharge Data Discharge Date: 03/29/17 Discharge Disposition: Home, Self-Care 01 Condition: Good - Patient Summary/Data Operative Procedure(s) Performed: Primary C/Section - Patient Instructions Diet: Usual Diet as Tolerated Activity: As Tolerated Driving: Do Not Drive Showering/Bathing: May Shower Wound/Incision Care: Keep Operative Site/Wound Site Clean and Dry Notify Provider of: Fever, Increased Pain - Discharge Plan Patient Handouts: Delivery, Care After Referrals: [facility] [Outside] Eboni Mcarthur CNM [Mid-] - ( week- April 04 @ 3:00pm w/ Dr. Santiago week- May 09 @ 1:30pm w/ Eboni Mcarthur) - General Info Date of Service: 03/29/17 Functional Status: Reports: Pain Controlled - Review of Systems General: Reports: No Symptoms HEENT: Reports: No Symptoms Pulmonary: Reports: No Symptoms Cardiovascular: Reports: No Symptoms Gastrointestinal: Reports: No Symptoms Genitourinary: Reports: No Symptoms Musculoskeletal: Reports: No Symptoms Skin: Reports: No Symptoms Neurological: Reports: No Symptoms Psychiatric: Reports: No Symptoms - Patient Data Vitals - Most Recent: Last Vital Signs Temp 36.8 C 03/29/17 08:20 Pulse 94 03/29/17 08:20 Resp 22 H 03/29/17 08:20 BP 148/88 H 03/29/17 08:20 Pulse Ox 97 03/29/17 08:20 Weight - Most Recent: 89.811 kg I&O - Last 24 hours: Intake & Output 03/28/17 03/29/17 03/29/17 22:59 06:59 14:59 Intake Total 1000 Output Total 1600 Balance -600 Med Orders - Current: Current Medications Bisacodyl (Dulcolax) 10 mg RECTAL .ONCE PRN PRN Reason: Constipation Carboprost Tromethamine (Hemabate Ds) 250 mcg IM ASDIRECTED PRN PRN Reason: Post Hemorrhage Diphenhydramine HCl (Benadryl) 25 mg IVPUSH Q6H PRN PRN Reason: Itching or Nausea Last Admin: 03/27/17 23:47 Dose: 25 mg Docusate Sodium (Colace) 100 mg PO BID LAST Last Admin: 02/19/18 21:26 Dose: 100 mg Emollient Ointment (Lansinoh Hpa) 0 gm TOP ASDIRECTED PRN PRN Reason: Sore Nipples Lactated Ringer's (Ringers, Lactated) 1,000 mls @ 150 mls/hr IV ASDIRECTED [facility] Last Admin: 03/27/17 19:49 Dose: 150 mls/hr Oxytocin/Sodium Chloride (Oxytocin 30 Unit/500 Ml-Ns) 30 unit in 500 mls @ 999 mls/hr IV TITRATE LAST Oxytocin/Sodium Chloride (Oxytocin 30 Unit/500 Ml-Ns) 30 unit in 500 mls @ 2 mls/hr IV TITRATE LAST; 2 MUNITS/MIN PRN Reason: Protocol Last Titration: 03/27/17 17:47 Dose: 0 munits/min, 0 mls/hr Tranexamic Acid 1,000 mg/ (Sodium Chloride) 110 mls @ 600 mls/hr IV ONETIME PRN PRN Reason: Bleeding Lactated Ringer's (Ringers, Lactated) 1,000 mls @ 125 mls/hr IV ASDIRECTED [facility] Last Admin: 03/27/17 23:27 Dose: 125 mls/hr Ibuprofen (Motrin) 800 mg PO Q8H PRN PRN Reason: mild pain or fever Last Admin: 03/29/17 05:46 Dose: 800 mg Lidocaine HCl (Xylocaine 1%) 50 ml INJECT .ONCE PRN PRN Reason: Laceration repair Methylergonovine Maleate (Methergine) 0.2 mg IM ASDIRECTED PRN PRN Reason: Post Hemorrhage Misoprostol (Cytotec) 200 mcg PO .ONCE PRN PRN Reason: Post Hemorrhage Misoprostol (Cytotec) 25 mcg VAG .ONCE LAST Last Admin: 03/27/17 01:46 Dose: 25 mcg Misoprostol (Cytotec) 25 mcg VAG Q4H PRN PRN Reason: Cervical Ripening Last Admin: 03/27/17 05:43 Dose: 25 mcg Misoprostol (Cytotec) 25 mcg PO .ONCE LAST Last Admin: 03/27/17 01:50 Dose: 25 mcg Misoprostol (Cytotec) 25 mcg PO Q4H PRN PRN Reason: Cervical Ripening Last Admin: 03/27/17 05:43 Dose: 25 mcg Nalbuphine HCl (Nubain) 10 mg IVPUSH Q1H PRN PRN Reason: Pain (severe 7-10) Nifedipine (Procardia Xl) 30 mg PO DAILY LAST Last Admin: 03/28/17 09:31 Dose: 30 mg Ondansetron HCl (Zofran) 4 mg IV Q4H PRN PRN Reason: Nausea/Vomiting Oxycodone/Acetaminophen (Percocet 325-5 Mg) 1 tab PO Q4H PRN PRN Reason: Pain (moderate 4-6) Oxycodone/Acetaminophen (Percocet 325-5 Mg) 2 tab PO Q4H PRN PRN Reason: Pain (moderate 4-6) Sodium Chloride (Saline Flush) 10 ml FLUSH ASDIRECTED PRN PRN Reason: Keep Vein Open Sodium Chloride (Saline Flush) 2.5 ml FLUSH ASDIRECTED PRN PRN Reason: Keep Vein Open Sterile Water (Sterile Water For Irrigation) 1,000 ml IRR ASDIRECTED PRN PRN Reason: delivery Terbutaline Sulfate (Brethine) 0.25 mg SUBCUT ASDIRECTED PRN PRN Reason: Tacysystole Discontinued Medications Cefazolin Sodium (Ancef) Confirm Administered Dose 2 gm .ROUTE .STK-MED ONE Stop: 03/27/17 20:35 Diphenhydramine HCl (Benadryl) 25 mg IVPUSH Q4H PRN PRN Reason: Itching Stop: 03/28/17 21:15 Ephedrine Sulfate (Ephedrine Sulfate) Confirm Administered Dose 50 mg .ROUTE .STK-MED ONE Stop: 03/27/17 20:35 Fentanyl (Sublimaze) 50 mcg IVPUSH Q45M PRN PRN Reason: Pain (severe 7-10) Stop: 03/28/17 21:15 Hydralazine HCl (Apresoline) Confirm Administered Dose 20 mg .ROUTE .STK-MED ONE Stop: 03/27/17 21:21 Sodium Chloride (Normal Saline) Confirm Administered Dose 20 mls @ as directed .ROUTE .STK-MED ONE Stop: 03/27/17 20:35 Sodium Chloride (Normal Saline) Confirm Administered Dose 20 mls @ as directed .ROUTE .STK-MED ONE Stop: 03/27/17 21:21 Ibuprofen (Motrin) 800 mg PO Q8H PRN PRN Reason: mild pain or fever Ketorolac Tromethamine (Toradol) 30 mg IVPUSH Q6H LAST Stop: 03/28/17 22:01 Last Admin: 03/28/17 21:27 Dose: 30 mg Labetalol HCl (Normodyne) Confirm Administered Dose 100 mg .ROUTE .STK-MED ONE Stop: 03/27/17 21:13 Midazolam HCl (Versed 1 Mg/Ml) Confirm Administered Dose 2 mg .ROUTE .STK-MED ONE Stop: 03/27/17 21:02 Morphine Sulfate (Duramorph Pf) Confirm Administered Dose 1 mg .ROUTE .STK-MED ONE Stop: 03/27/17 20:35 Nalbuphine HCl (Nubain) 5 mg IVPUSH Q3H PRN PRN Reason: Pruritis Stop: 03/28/17 21:15 Naloxone HCl (Narcan) 0.1 mg IVPUSH ONETIME PRN PRN Reason: Respiratory Depression Stop: 03/28/17 21:15 Octyl Cyanoacrylate (Dermabond Advance) Confirm Administered Dose 1 applic .ROUTE .STK-MED ONE Stop: 03/27/17 21:25 Ondansetron HCl (Zofran) Confirm Administered Dose 4 mg .ROUTE .STK-MED ONE Stop: 03/27/17 20:35 Oxytocin (Pitocin) Confirm Administered Dose 20 unit .ROUTE .STK-MED ONE Stop: 03/27/17 20:54 - Exam General: Reports: Alert, Oriented HEENT: Reports: Pupils Equal, Pupils Reactive, EOMI, Mucous Membr. Moist/[place] Neck: Reports: Supple Lungs: Reports: Clear to Auscultation, Normal Respiratory Effort Cardiovascular: Reports: Regular Rate, Regular Rhythm GI/Abdominal Exam: Normal Bowel Sounds, Soft, Non-Tender, No Organomegaly, No Distention, No Abnormal Bruit, No Mass, Pelvis Stable (Female) Exam: Normal External Exam, Normal Speculum Exam, Normal Bimanual Exam Rectal (Female) Exam: Normal Exam, Normal Rectal Tone Back Exam: Reports: Normal Inspection, Full Range of Motion Extremities: Normal Inspection, Normal Range of Motion, Non-Tender, No Pedal Edema, Normal Capillary Refill Skin: Reports: Warm, Dry, Intact Wound/Incisions: Reports: Healing Well Neurological: Reports: No New Focal Deficit Psy/Mental Status: Reports: Alert, Normal Affect, Normal Mood *Q Meaningful Use (DIS) - VTE *Q VTE Criteria *Q: - Stroke *Q Stroke Criteria *Q: - AMI *Q AMI Criteria *Q:
[2017-03-29] MEDS: NIFEdipine 30 MG Tab.ER PO SCH (09:28)
[2017-03-29] MEDS: Docusate Sodium 100 MG Cap PO SCH (09:29)
== END 2017-03-29 11:35 | disposition home or self-care (01) | DRG 540 ==
LOC: MW.OBCHECK 00:34 → MW.OB 00:36 → MW.OBCHECK 00:55 → MW.OB 00:55 → OBSVTOIN 21:31 → MW.OB 22:20
PROVIDERS: ADMIT Obstetrics & Gynecology; ATTEND Obstetrics & Gynecology
PROC: 10D00Z1 Extraction of Products of Conception, Low, Open Approach (ICD-10-PCS; principal; 2017-03-27)
PROC: 3E0P7VZ Introduction of Hormone into Female Reproductive, Via Natural or Artificial Opening (ICD-10-PCS; 2017-03-27)
PROC: 3E033VJ Introduction of Other Hormone into Peripheral Vein, Percutaneous Approach (ICD-10-PCS; 2017-03-27)
DX: O24.420 Gestational diabetes mellitus in childbirth, diet controlled (principal); O76 Abnormality in fetal heart rate and rhythm complicating labor and delivery; O13.4 Gestational [pregnancy-induced] hypertension without significant proteinuria, complicating childbirth; Z3A.39 39 weeks gestation of pregnancy; Z37.0 Single live birth
CPT/HCPCS: 01961; 36415; 59025; 82962; 85014; 85018; 85027; 86850; 86900; 86901; A9270-GY; J0360; J0690; J1200; J1885; J2250; J2274; J2405; J2590; J7120

== ENCOUNTER 2018-12-25 22:17 | Emergency (ER) | payer BC, SELFPAY ==
[2018-12-25] MEDS ORDERED: Ondansetron 4 MG Tab.DIS PO ONE (22:37)
[2018-12-25] MEDS ORDERED: Acetaminophen 325 MG Tab PO ONE (22:37)
--- NOTE | 2018-12-25 22:41 | EDM.PDOC ---
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 Her last sexual intercourse was about 2-1/2 weeks ago and she has had no urinary complaints such as frequency urgency or dysuria. She has had nausea over the last few days but no vomiting nor diarrhea. She's had no fevers chills or upper respiratory symptoms. She says that she started having the cramping and vaginal bleeding 2 days ago and she has only used 1 light and he liner per day and the bleeding has only been scant and when she wipes on the toilet. She has not filled a pad nor had any clots or tissue. She has a history of a but no other abdominal surgeries and she doesn't have any other gynecologic history that she admits to me. She has been eating and drinking normally and has not taken anything for pain. She describes the pain as diffuse across her lower pelvis and does not localize right or left and she has no flank pain Review of systems: As per history of present illness and below otherwise all systems reviewed and negative. Past medical history: As per history of present illness and as reviewed below otherwise noncontributory. Surgical history: As per history of present illness and as reviewed below otherwise noncontributory. Social history: No reported history of drug or alcohol abuse. Family history: As per history of present illness and as reviewed below otherwise noncontributory. Physical exam: eneral: Well-developed well-nourished female who is mildly overweight and nontoxic. Vital signs are noted by me HEENT: Atraumatic, normocephalic, negative for conjunctival pallor or scleral icterus, mucous membranes moist, throat clear, neck supple, nontender, trachea midline. Lungs: Clear to auscultation, breath sounds equal bilaterally, chest nontender. Heart: S1S2, regularrate and rhythm no overt murmurs. Abdomen: Soft, nondistended,mildly tender throughout the lower abdomen/pelvis area without localization right or left, there is no rebound or guarding and no upper abdominal tenderness, bowel sounds are hypoactive Negative for masses or hepatosplenomegaly. Negative for costovertebral tenderness. Pelvis: Stable nontender. Genitourinary: Deferred. Rectal: Deferred. Extremities: Atraumatic, negative for cords or calf pain. Neurovascular unremarkable.no pedal edema Neuro: Awake, alert, oriented. Cranial nerves II through XII unremarkable. Cerebellum unremarkable. Motor and sensory unremarkable throughout. Exam nonfocal. Diagnostics: CBC CMP UA with reflex serum quantitative hCG pelvic ultrasound Patient's blood type is B+ as documented in the computer March 27, 2017 Therapeutics: Zofran ODT, Tylenol 0045: case was discussed with Dr. Santiago and he would like the patient to call the clinic in the morning and schedue a follow-up appointment on Tuesday or and to have a repeat quantitative hCG performed on Tuesday I discussed the testing results with the patient and the need for strict pelvic rest and to follow-up in the clinic if the bleeding worsens or if her clinical picture changes. Impression: hreatened /non-progressing Definitive disposition and diagnosis as appropriate pending reevaluation and review of above. 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: Musculoskeletal History: Reports: None Neurological History: Reports: None Psychiatric History: Reports: None Endocrine/Metabolic History: Reports: Diabetes, Gestational Hematologic History: Reports: None Immunologic History: Reports: None Oncologic (Cancer) History: Reports: None Dermatologic History: Reports: None - Infectious Disease History Infectious Disease History: Reports: None - Past Surgical History Cardiovascular Surgical History: Reports: None Endocrine Surgical History: Reports: None Social & Family History - Family History Family Medical History: Noncontributory OBGYN: Reports: - Tobacco Use Smoking Status *Q: Never Smoker - Recreational Drug Use Recreational Drug Use: No ED ROS GENERAL - Review of Systems Review Of Systems: Comprehensive ROS is negative, except as noted in HPI. ED EXAM, GENERAL - Physical Exam Exam: See Below (see dictation) Course - Vital Signs Last Recorded V/S: Last Vital Signs Temp 36.4 C 12/25/18 22:23 Pulse 82 12/25/18 22:23 Resp 14 12/25/18 22:23 BP 140/76 12/25/18 22:23 Pulse Ox 99 12/25/18 22:23 - Orders/Labs/Meds Labs: Laboratory Tests 12/25/18 12/25/18 12/25/18 Range/Units 22:36 23:01 23:01 WBC 10.13 (4.0-11.0) K/uL RBC 3.84 L (4.30-5.90) M/uL Hgb 12.0 (12.0-16.0) g/dL Hct 34.4 L (36.0-46.0) % MCV 89.6 (80.0-98.0) fL MCH 31.3 (27.0-32.0) pg MCHC 34.9 (31.0-37.0) g/dL RDW Std Deviation 43.8 (28.0-62.0) fl RDW Coeff of Amanda 13 (11.0-15.0) % Plt Count 263 (150-400) K/uL MPV 10.70 (7.40-12.00) fL Neut % (Auto) 69.7 (48.0-80.0) % Lymph % (Auto) 22.6 (16.0-40.0) % [place] % (Auto) 7.0 (0.0-15.0) % Eos % (Auto) 0.4 (0.0-7.0) % Baso % (Auto) 0.3 (0.0-1.5) % Neut # (Auto) 7.1 H (1.4-5.7) K/uL Lymph # (Auto) 2.3 (0.6-2.4) K/uL [place] # (Auto) 0.7 (0.0-0.8) K/uL Eos # (Auto) 0.0 (0.0-0.7) K/uL Baso # (Auto) 0.0 (0.0-0.1) K/uL Nucleated RBC % 0.0 /100WBC Nucleated RBCs # 0 K/uL Sodium 137 (136-145) mmol/L Potassium 3.7 (3.5-5.1) mmol/L Chloride 103 (98-107) mmol/L Carbon Dioxide 26.2 (21.0-32.0) mmol/L BUN 10 (7.0-18.0) mg/dL Creatinine 1.0 (0.6-1.0) mg/dL Est Cr Clr Drug Dosing 82.98 mL/min Estimated GFR (MDRD) > 60.0 ml/min Glucose 131 H (74-106) mg/dL Calcium 8.5 (8.5-10.1) mg/dL Total Bilirubin 0.3 (0.2-1.0) mg/dL AST 11 L (15-37) IU/L ALT 15 (14-63) IU/L Alkaline Phosphatase 39 L (46-116) U/L Total Protein 8.2 (6.4-8.2) g/dL Albumin 3.9 (3.4-5.0) g/dL Globulin 4.3 H (2.6-4.0) g/dL Albumin/Globulin Ratio 0.9 (0.9-1.6) HCG, Quant 7089.0 mIU/mL Urine Color YELLOW Urine Appearance CLEAR Urine pH 7.0 (5.0-8.0) Ur Specific [place] 1.015 (1.001-1.035) Urine Protein NEGATIVE (NEGATIVE) mg/dL Urine Glucose (UA) NEGATIVE (NEGATIVE) mg/dL Urine Ketones NEGATIVE (NEGATIVE) mg/dL Urine Occult Blood MODERATE H (NEGATIVE) Urine Nitrite NEGATIVE (NEGATIVE) Urine Bilirubin NEGATIVE (NEGATIVE) Urine Urobilinogen 0.2 (<2.0) EU/dL Ur Leukocyte Esterase NEGATIVE (NEGATIVE) Urine RBC 2-3 (0-2/HPF) Urine WBC 0-1 (0-5/HPF) Ur Epithelial Cells RARE (NONE-FEW) Urine Bacteria RARE (NEGATIVE) Meds: Medications Discontinued Medications Generic Name Dose Route Start Last Admin Trade Name Freq PRN Reason Stop Dose Admin Acetaminophen 650 mg 12/25/18 22:37 12/25/18 22:54 Tylenol PO 12/25/18 22:38 650 mg NOW ONE Administration Ondansetron HCl 4 mg 12/25/18 22:37 12/25/18 22:54 Zofran Odt PO 12/25/18 22:38 4 mg ONETIME ONE Administration Departure - Departure Time of Disposition: 00:47 Disposition: Home, Self-Care 01 Condition: Good Clinical Impression: Threatened - Discharge Information Referrals: PCP,None [Primary Care Provider] - Forms: ED Department Discharge Additional Instructions: The following information is given to patients seen in the emergency department who are being discharged to home. This information is to outline your options for follow-up care. We provide all patients seen in our emergency department with a follow-up referral. The need for follow-up, as well as the timing and circumstances, are variable depending upon the specifics of your emergency department visit. If you don't have a primary care physician on staff, we will provide you with a referral. We always advise you to contact your personal physician following an emergency department visit to inform them of the circumstance of the visit and for follow-up with them and/or the need for any referrals to a consulting specialist. The emergency department will also refer you to a specialist when appropriate. This referral assures that you have the opportunity for followup care with a specialist. All of these measure are taken in an effort to provide you with optimal care, which includes your followup. Under all circumstances we always encourage you to contact your private physician who remains a resource for coordinating your care. When calling for followup care, please make the office aware that this follow-up is from your recent emergency room visit. If for any reason you are refused follow-up, please contact the [facility] emergency department at and ask to speak to the emergency department charge nurse. [facility] [address] [address] Push hydration and use [id number] Tylenol for pain as needed. Please have your blood retested on Tuesday afternoon to follow your hormone level and contact the clinic later this morning to schedule follow-up appointment with Dr. Mathis or Eboni on Tuesday afternoon after you have your blood drawn. Strict pelvic rest with nothing in vagina until you're followed up in the clinic. Return to ER as needed and as discussed
[2018-12-25 23:46] LABS: BLOOD UREA NITROGEN,BUN 10 mg/dL (7.0-18.0); CARBON DIOXIDE,CO2 26.2 mmol/L (21.0-32.0); CHLORIDE,CL 103 mmol/L (98-107); GLUCOSE RANDOM 131 mg/dL (74-106); POTASSIUM,K 3.7 mmol/L (3.5-5.1); SODIUM,NA 137 mmol/L (136-145)
--- NOTE | 2018-12-26 00:39 | US ---
INDICATION: Cramping and bleeding in early . OBSTETRICAL ULTRASOUND Technique: Transvaginal scanning of the pelvis was performed. Findings: No intrauterine gestational sac is identified. There is a moderate amount of mixed anechoic and echogenic material within the endometrial cavity in the lower uterine segment. The left ovary appears normal and contains a probable corpus luteum. The right ovary is not visualized. No adnexal masses are seen. No significant free pelvic fluid is identified. IMPRESSION: 1. No intrauterine gestational sac identified. 2. Mixed anechoic and echogenic material within the endometrial cavity in the lower uterine segment. This could represent a spontaneous in progress. 3. Nonvisualization of the right ovary. ERIN CLEARY MD [employer] Dictated by Damian Cleary MD @ 12/26/2018 12:38:05 AM Dictated by: Damian Cleray MD @ 12/26/2018 00:38:27 (Electronically Signed)
== END 2018-12-26 01:05 | disposition home or self-care (01) ==
LOC: MW.ED 22:17
DX: O20.0 Threatened abortion (principal); O16.1 Unspecified maternal hypertension, first trimester; O24.419 Gestational diabetes mellitus in pregnancy, unspecified control; Z3A.01 Less than 8 weeks gestation of pregnancy
CPT/HCPCS: 36415; 76801; 80053; 81001; 84702; 85025; 99284; A9270